=== PATIENT | male | born 1955 | race Caucasian/White ===

== ENCOUNTER 2017-01-12 01:38 | Emergency (ER) | payer OTHER ==
--- NOTE | ~2017-01-12 | CR72 ---
[facility] A Service of [facility] RADIOLOGY TEXT RESULTS PATIENT: MARY TURCIOS LOCATION: SED : 55 UNIT #: [id number] AGE: [address]: Dc Mancia MD SEX: M ORDER DR: [id number] [address] [address] [id number] E MR#: [id number] Acc #: [id number] NAME: MARY TURCIOS : 1955 SEX: M STUDY DATE/TIME: 01/12/2017 2:11 UNIT: SED ROOM: STUDY DESCRIPTION: CR Chest Single View Portable Attending Physician: Dc Mancia M.D. Ordering Physician: Dc Mancia M.D. Primary Care Physician: Primary Care Physician No MEDICAL IMAGING REPORT This report is preliminary unless electronic signature is present. EXAM Portable chest HISTORY Chronic shortness of air, cough and congestion, worse over last 2-3 days. COMPARISON 06/10/2016 FINDINGS AP portable view of the chest demonstrates extensive emphysematous changes with large bullae within both upper lungs with scarring and fibrosis and upward retraction of the kristy. No acute airspace disease or consolidation. Probable chronic pleural thickening in the lung bases but no definitive effusions. Heart and mediastinum unremarkable. Osseous structures unremarkable for age. Dictated by... May Pineda M.D. THIS IS AN ELECTRONICALLY VERIFIED REPORT May Pineda M.D. at 01/12/2017 9:58 PM KRUNAL/krissy TD: 01/12/2017 09:45 JOB #: [id number] MEDICAL IMAGING REPORT Page 1 of 1
--- NOTE | ~2017-01-12 | EKG ---
PATIENT: MARY TURCIOS UNIT #: [id number] Ventricular Rate: 93 BPM Atrial Rate: 93 BPM P-R Interval: 162 ms QRS Duration: 92 ms Q-T Interval: 348 ms QTC Calculation(Bezet): 432 ms P [place]: 79 degrees Calculated R [place]: -99 degrees Calculated T [place]: 81 degrees Diagnosis Line: Normal sinus rhythm Diagnosis Line: Biatrial enlargement Diagnosis Line: Right superior axis deviation Diagnosis Line: Pulmonary disease pattern Diagnosis Line: Abnormal ECG Diagnosis Line: When compared with ECG of 21-JUN-2016 20:14, Diagnosis Line: No significant change was found Diagnosis Line: Confirmed by BRUNA LUQUE MD ([id number]) on 01/14/2017 Diagnosis Line: 9:39:08 AM INTERPRETING MD: ENE PETTY
[~2017-01-12 01:38] MED LIST: ALBUTEROL MININEB INH; AMLODIPINE BESYL5 MG PO; ASPIRIN EC81 M1 PO; BANOPHEN50 MG PO; BENZONATATE PO; BISA-LAX10 MG/SUP1 PR; CALAMINE120 ML; CEFTIN500 MG PO; COMBIVENT MININEB INH; COMMIT BU; EXPECTORAN100 MG/52 PO; FERRO-TIME325 MG PO; FLONASE 0.05% N16 G1 INH; GAVILAX17 GM PO; GERI-TUSSI100 MG/5 M PO; LANSOPRAZOLE30 MG PO; LIPITOR20 MG PO; LISINOPRIL20 MG PO; NICOTINE PO; NICOTINE TRANSD21 MG TOP; NORCO1 TAB 10/3 PO; PAROXETINE HCL40 M1 PO; PREDNISOLONE1 GM; PREDNISONE PO; PROAIR HFA8.5 GM INH; SENNA S TABLET1 TAB PO; SPIRIVA18 MCG INH; SYMBICORT INH; SYNTHROID175 MCG PO; TYLENOL325 M1 PO; VITAMIN D3400 UNIT PO; ZITHROMAX PO
[2017-01-12 02:05] LABS: BASOPHIL# 0.1 X10e3 (0-0.3); BASOPHIL% 1.1 % (0-2.5); EOSINOPHIL# 0.2 X10e3 (0-0.7); HEMATOCRIT 40.7 % (38.0-50.0); HEMOGLOBIN 13.3 gm/dL (13.0-16.0); LYMPHOCYTE# 2.2 X10e3 (1.0-3.5); LYMPHOCYTE% 24.7 % (17.0-45.0); MEAN CELL VOLUME 90.7 FL (83-96); MEAN CORPUSCULAR HEMOGLOBIN 29.6 PG (28-34); MEAN CORPUSCULAR HGB CONC 32.7 g/dL (30-36); MEAN PLATELET VOLUME 7.8 FL (6.5-11.5); MONOCYTE# 0.7 X10e3 (0-1.0); MONOCYTE% 8.2 % (3.0-12.0); NEUTROPHIL# 5.6 X10e3 (1.5-7.1); PLATELET COUNT 357 X10e3 (140-420); RED BLOOD COUNT 4.49 X10e (3.90-5.60); RED CELL DISTRIBUTION WIDTH 16.2 % (11.0-15.5); WHITE BLOOD COUNT 8.8 X10e3 (4.0-10.5)
[2017-01-12 02:06] LABS: DIFF IND NO
[2017-01-12 02:14] LABS: INR 1.1; PROTHROMBIN TIME (PATIENT) 12.6 SECONDS (9.5-12.4)
[2017-01-12 02:20] LABS: POC - CKMB 2.3 ng/mL (0.0-7.9); POC - TROPONIN <0.05 ng/mL (<=0.05)
[2017-01-12 02:22] LABS: PARTIAL THROMBOPLASTIN TIME 31.7 SECONDS (25.6-38.1)
[2017-01-12 02:23] LABS: ALBUMIN SERUM 3.7 g/dL (3.5-5.0); ALKALINE PHOSPHATASE 62 U/L (32-92); ALT (SGPT) 12 U/L (10-40); AST (SGOT) 20 U/L (10-42); BILIRUBIN, DIRECT <0.1 mg/dL (0.0-0.2); BILIRUBIN,TOTAL 0.1 mg/dL (0.2-2.0); BLOOD UREA NITROGEN 14 mg/dL (9-23); BUN/CREATININE RATIO 23.33; CALCIUM SERUM 8.8 mg/dL (8.4-10.2); CARBON DIOXIDE 34 mmol/L (22-31); CHLORIDE 97 mmol/L (100-111); CREATININE SERUM 0.6 mg/dL (0.6-1.4); GLOM FILT RATE Estimated 108.6 mL/min (>60); GLUCOSE FASTING 135 mg/dL (70-110); POTASSIUM 3.6 mmol/L (3.5-5.1); PROTEIN TOTAL SERUM 6.9 g/dL (6.0-8.3); SODIUM 136 mmol/L (135-145)
== END 2017-01-12 03:44 | disposition home or self-care (01) ==
LOC: SED 01:38
PROVIDERS: Emergency Medicine
DX: J44.1 Chronic obstructive pulmonary disease with (acute) exacerbation (principal); J20.9 Acute bronchitis, unspecified; J44.0 Chronic obstructive pulmonary disease with (acute) lower respiratory infection; F17.200 Nicotine dependence, unspecified, uncomplicated; Z86.73 Personal history of transient ischemic attack (TIA), and cerebral infarction without residual deficits
CPT/HCPCS: 36415; 71010; 80048; 80076; 82553; 84484; 85025; 85610; 85730; 93005; 94640; 96365; 96375; 99284; J2930; J3475

== ENCOUNTER 2017-01-28 13:07 | Emergency (ER) | payer OTHER ==
--- NOTE | ~2017-01-28 | CR72 ---
[facility] A Service of [facility] RADIOLOGY TEXT RESULTS PATIENT: MARY TURCIOS LOCATION: [facility] : 55 UNIT #: [id number] AGE: [address]: Lex Salter MD SEX: M ORDER DR: [id number] [facility] [address] [place], [place] [address] [id number] P MR#: [id number] Acc #: [id number] NAME: MARY TURCIOS : 1955 SEX: M STUDY DATE/TIME: 01/28/2017 13:41 UNIT: [facility] ROOM: STUDY DESCRIPTION: CR Chest Single View Portable Attending Physician: Lex Salter M.D. Ordering Physician: Lex Salter M.D. Primary Care Physician: Primary Care Physician No MEDICAL IMAGING REPORT This report is preliminary unless electronic signature is present EXAM Chest portable 01/28/2017 1341 hours CLINICAL HISTORY 61-year-old man with shortness of air since last night. Hypertension. COMPARISON 01/12/2017. FINDINGS Portable upright chest demonstrates normal heart size and stable aortic contours. There is underlying emphysematous change with large apical bullae. There is scarring and superior retraction of both pulmonary kristy similar to prior study. There is a linear horizontal density in the right midlung which could represent a small air-fluid level and fluid within 1 of the previously demonstrated bulla cannot be excluded. There is ovoid opacity in the left upper lung new since the prior study measuring up to 3.2 x 2.2 cm. This appears to have a surrounding lucent halo and fluid or debris within a preexisting bulla is questioned as well. Consider further characterization with chest CT. These findings could be related to infection or hemorrhage within a bulla. Mycetoma cannot be excluded. IMPRESSION Patient has bullous emphysematous changes particularly in the upper lobes with scarring and superior retraction of both pulmonary kristy. There is hazy opacity in the left suprahilar region measuring 3.3 x 2.2 cm with a surrounding lucent halo raising question of fluid or debris within a preexisting bulla. There is also a horizontal linear line in the lateral mid-right hemithorax which raises question of an air-fluid level. This could be due to fluid within a preexisting bulla are within the pleural space. Findings are concerning for infection or hemorrhage within preexisting bullae. A mycetoma cannot be excluded in the left upper lung. Consider further evaluation with chest CT with contrast if possible. [facility] A Service of [facility] RADIOLOGY TEXT RESULTS PATIENT: MARY TURCIOS LOCATION: [facility] : 55 UNIT #: [id number] AGE: [address]: Lex Salter MD SEX: M ORDER DR: STAT * RESULT Dictated by... Linda Mejias M.D. THIS IS AN ELECTRONICALLY VERIFIED REPORT Linda Mejias M.D. at 01/28/2017 2:29 PM VONDA/constanza TD: 01/28/2017 14:18 JOB #: [id number] MEDICAL IMAGING REPORT Page 1 of 1 COPY
--- NOTE | ~2017-01-28 | EKG ---
PATIENT: MARY TURCIOS UNIT #: [id number] Ventricular Rate: 96 BPM Atrial Rate: 96 BPM P-R Interval: 154 ms QRS Duration: 88 ms Q-T Interval: 342 ms QTC Calculation(Bezet): 432 ms P [place]: 82 degrees Calculated R [place]: -85 degrees Calculated T [place]: 85 degrees Diagnosis Line: Normal sinus rhythm Diagnosis Line: Biatrial enlargement Diagnosis Line: Left axis deviation Diagnosis Line: Pulmonary disease pattern Diagnosis Line: Abnormal ECG Diagnosis Line: When compared with ECG of 12-JAN-2017 01:37, Diagnosis Line: No significant change was found Diagnosis Line: Confirmed by BRUNA LUQUE MD ([id number]) on 01/29/2017 Diagnosis Line: 6:01:28 PM INTERPRETING MD: ENE PETTY
--- NOTE | ~2017-01-28 | CT57 ---
[facility] A Service of [facility] RADIOLOGY TEXT RESULTS PATIENT: MARY TURCIOS LOCATION: [facility] : 55 UNIT #: [id number] AGE: [address]: Lex Salter MD SEX: M ORDER DR: [id number] [facility] [address] [place], [place] [address] [id number] E MR#: [id number] Acc #: [id number] NAME: MARY TURCIOS : 1955 SEX: M STUDY DATE/TIME: 01/28/2017 15:30 UNIT: [facility] ROOM: STUDY DESCRIPTION: CT Chest Wo Cont Attending Physician: Lex Salter M.D. Referring Physician: Kika Self Referred Ordering Physician: Lex Salter M.D. Primary Care Physician: No Primary Care Physician MEDICAL IMAGING REPORT This report is preliminary unless electronic signature is present EXAM CT of the chest without contrast. INDICATION Shortness of breath since last night, as well as chest pain. TECHNIQUE Axial CT images were obtained from the thoracic inlet through the dome of the diaphragm. No intravenous contrast material was administered. This CT exam was performed with one or more of the following radiation dose reduction techniques: automatic exposure control, adjustment of mA and/or kV according to patient size, and iterative reconstruction. FINDINGS This patient has advanced background emphysematous changes with large apical bulla seen. Similar findings were present in of December 2015, and are probably not significantly changed. Chronic fibrotic changes are identified within both lungs with areas of pleural thickening noted, particularly on the right. Thyroid gland is heterogeneous, trachea appears unremarkable as is the esophagus. Mediastinal lymph nodes do not appear pathologically enlarged. There are coronary artery calcifications. Images through the upper abdomen demonstrate multiple low-attenuation lesion within the right kidney which are favored to represent cysts. These were also present on December 2015 examination. I do not see any acute abnormalities within the upper abdomen. Review of bony windows does not demonstrate any aggressive osseous abnormalities. IMPRESSION 1. Advanced background emphysematous changes are again seen with large biapical bulla noted. Similar findings were present on the exam from December 27, 2015, and I do not see any evidence of pneumothorax, although, I do think some posteriorly located bulla within the right STS. [facility] A Service of [facility] RADIOLOGY TEXT RESULTS PATIENT: MARY TURCIOS LOCATION: [facility] : 55 UNIT #: [id number] AGE: [address]: Lex Salter MD SEX: M ORDER DR: lung in particular may be larger than on the prior study. Chronic scarring is identified within both lungs. The appearance is stable when compared to the exam from December of 2014, including chronic pleural thickening particularly within the right lung. 2. Heterogeneous appearing thyroid gland may reflect some underlying thyroid nodules. This would be better assessed with dedicated thyroid ultrasound on a nonemergent outpatient basis. 3. Right renal cysts. 4. Please see the body of the report for any other additional incidental findings. Dictated by... Marti Beltre M.D. THIS IS AN ELECTRONICALLY VERIFIED REPORT Marti Beltre M.D. at 01/29/2017 1:17 PM AFF/jt TD: 01/28/2017 19:42 JOB #: [id number] MEDICAL IMAGING REPORT Page 1 of 1 COPY
[2017-01-28 13:52] LABS: BASOPHIL# 0.1 X10e3 (0-0.3); BASOPHIL% 0.5 % (0-2.5); EOSINOPHIL# 0.1 X10e3 (0-0.7); HEMATOCRIT 38.5 % (38.0-50.0); HEMOGLOBIN 12.5 gm/dL (13.0-16.0); LYMPHOCYTE# 1.5 X10e3 (1.0-3.5); LYMPHOCYTE% 11.2 % (17.0-45.0); MEAN CELL VOLUME 91.2 FL (83-96); MEAN CORPUSCULAR HEMOGLOBIN 29.6 PG (28-34); MEAN CORPUSCULAR HGB CONC 32.4 g/dL (30-36); MEAN PLATELET VOLUME 8.2 FL (6.5-11.5); MONOCYTE# 1.3 X10e3 (0-1.0); MONOCYTE% 9.8 % (3.0-12.0); NEUTROPHIL# 10.1 X10e3 (1.5-7.1); NEUTROPHIL% 77.5 % (40-75); PLATELET COUNT 329 X10e3 (140-420); RED BLOOD COUNT 4.22 X10e (3.90-5.60); RED CELL DISTRIBUTION WIDTH 16.3 % (11.0-15.5)
[2017-01-28 13:55] LABS: POC - CKMB 2.8 ng/mL (0.0-7.9); POC - TROPONIN <0.05 ng/mL (<=0.05)
[2017-01-28 13:58] LABS: DIFF IND NO
[2017-01-28 14:20] LABS: CALCIUM SERUM 8.6 mg/dL (8.4-10.2); CREATININE SERUM 0.5 mg/dL (0.6-1.4); POTASSIUM 3.8 mmol/L (3.5-5.1)
== END 2017-01-28 16:55 | disposition home or self-care (01) ==
LOC: CED 13:07
PROVIDERS: Emergency Medicine
DX: J44.1 Chronic obstructive pulmonary disease with (acute) exacerbation (principal); I25.10 Atherosclerotic heart disease of native coronary artery without angina pectoris; F41.9 Anxiety disorder, unspecified; F17.200 Nicotine dependence, unspecified, uncomplicated; Z86.73 Personal history of transient ischemic attack (TIA), and cerebral infarction without residual deficits; Z79.899 Other long term (current) drug therapy; Z91.041 Radiographic dye allergy status
CPT/HCPCS: 71010; 71250; 80048; 82553; 83880; 84484; 85025; 93005; 94640; 96374; 99284; J2930

== ENCOUNTER 2017-05-21 05:53 | Inpatient (IN) | payer OTHER ==
[~2017-05-21] VITALS: Ht 170.2 cm; Wt 50.8 kg
--- NOTE | ~2017-05-21 | A ---
[facility] Nutrition Therapy DATE: 05/22/17 Patient: MARY TURCIOS Physician: WILLIE Address: [address] [place] [address] Room/Bed: [address], Zip: [place] [address] Admit Date: 05/21/17 Date of : 55 Height: 5 7 Weight: 109 49.5 NUTRITIONAL ASSESSMENT: REASON: LOW BMI PT IS 62 Y.O. MALE ADMITTED FOR SOA, ACUTE ON CHRONIC RESPIRATORY FAILURE PMH: COPD, CHRONIC RESPIRATORY FAILURE, PA, CAD, CVA, HYPOTHYROIDISM, 1 PPD SMOKER Anthropometrics: 5'7", WT: 120# (BEDSIDE) (55 KG), BMI: 18.8, 81%IBW -110# OTHER WEIGHT IN [facility] Labs: GLU: 159, BUN: 27, CA+:8.2, ALB: 3.0, NA+:134 Meds: KCL, PROTONIX, NACL, SOLU-MEDROL I/O & Bowel function: 1149/485 Skin Integrity: DRY SKIN NOTED ALL OVER BODY Estimated Nutrition Needs: INCREASED NEEDS 2' PT UNDERWEIGHT STATUS, PMH, CURRENT CLINICAL CONDITION, ?WEIGHT LOSS NOTED Assessment: CHART REVIEWED AND EVENTS NOTED. PT SEEN FOR UNDERWEIGHT STATUS (LOW BMI). PT REPORTS FAIR PO INTAKE AND APPETITE, NOTING NO C/O N/V/D. PT ADDS "I FEEL LIKE I AM ALWAYS HUNGRY". PT NOTES CONSUMING ~2-3 MEALS DAILY AT HOME. PT REPORTS UBW IS ~120-130#. OF NOTE, RD ASSESSED PT BACK IN APRIL 2016 AND PT NOTED UBW IS ~130#. THIS RD ENCOURAGED ADEQUATE KCAL, PROTEIN AND FLUID INTAKE, PT AGREED TO ENSURE CLEAR (DIET TO BE ADVANCED TO CLEAR LIQUID THIS AM). PT ALSO REQUESTED ENSURE ENLIVE + ENSURE PUDDING ONCE DIET ADVANCES BEYOND CLEAR LIQUID. PT REPORTED NO DIET QUESTIONS AT THIS TIME. RD TO FOLLOW HOSPITAL COURSE. Dx: INADEQUATE PROTEIN-ENERGY INTAKE R/T PMH, FAIR APPETITE AEB PT REPORT ABOVE, LOW BMI OF 18.8, 81%IBW. Intervention: 1. CLEAR LIQUID DIET 2. ENSURE CLEAR BID W/MEALS Monitoring, Evaluation and Goals: 1. ORAL INTAKE; ONCE INITIATED, TOLERATE/CONSUME >50% OF MEALS AND SUPPLEMENTS 2. WEIGHTS; PROMOTE GRADUAL WEIGHT GAIN TOWARDS HEALTHY BMI; PREVENT WEIGHT LOSS 3. LABS; WNL MONITOR: PER PROTOCOL, CRITERIA TO DETERMINE IF ABOVE GOALS ARE MET [facility] Nutrition Therapy DATE: 05/22/17 Patient: MARY TURCIOS Physician: WILLIE Address: [address] [place] [address] Room/Bed: [address], Zip: [place] [address] Admit Date: 05/21/17 Date of : 55 Height: 5 7 Weight: 109 49.5 Recommendations: 1. RD TO ORDER MIXED QUINTERO ENSURE CLEAR BID W/MEALS FOR ADDITIONAL PROTEIN, KCAL AND FLUIDS 2. ONCE MEDICALLY FEASIBLE, ADVANCE DIET TOLERATED TO REGULAR TO BETTER FACILITATE PO INTAKE 3. ORDER STRAWBERRY ENSURE SHAKES BID + BUTTERSCOTCH ENSURE PUDDING W/DINNER MEAL DAILY FOR ADDITIONAL PROTEIN, KCAL AND FLUIDS 4. ENCOURAGE ADEQUATE PO INTAKE RD WILL F/U PER PROTOCOL PT IS MILD/MODERATELY COMPROMISED Respectfully, MARIA DE JESUS AARON MS, RD, LD [employer] [facility] cc: client file
--- NOTE | ~2017-05-21 | CR72 ---
[facility] A Service of [facility] RADIOLOGY TEXT RESULTS PATIENT: MARY TURCIOS LOCATION: [facility] : 55 UNIT #: [id number] AGE: [address]: Monica Dinero MD SEX: M ORDER DR: [id number] [place] [id number] [facility] [place], [place] [address] [id number] I MR#: [id number] Acc #: [id number] NAME: MARY TURCIOS : 1955 SEX: M STUDY DATE/TIME: 05/21/2017 6:33 UNIT: CEDOF ROOM: [id number] STUDY DESCRIPTION: CR Chest Single View Portable Attending Physician: Monica Dinero M.D. Ordering Physician: Marvin Benavidez M.D. Primary Care Physician: No Primary Care Physician MEDICAL IMAGING REPORT This report is preliminary unless electronic signature is present EXAM Chest x-ray, 05/21/2017. HISTORY 62-year-old male in the ED complaining of 2-day history of worsening of his chronic shortness of air. Chronic lung disease. TECHNIQUE AP portable upright chest images. COMPARISON CT chest and chest x-ray, 01/28/2017. FINDINGS Severe pulmonary emphysema. There is also severe chronic postinflammatory change in the upper lungs likely related to old granulomatous infection. These changes include fibrosis and significant upper lung retractile volume loss with upward retraction of the pulmonary kristy and formation of retractile bullous airspaces at both lung apices. When compared with prior studies, there is no evidence of superimposed active upper lung superinfection such as new airspace consolidation or apical pleural fluid or pleural thickening. Lower lungs are clear. Heart size normal. No visible pleural effusion. IMPRESSION Stable chest x-ray, unchanged since 01/28/2017. Advanced pulmonary emphysema. Advanced chronic postinflammatory changes and volume loss in the upper lungs as noted above. Dictated by... Walt Noland M.D. [facility] A Service of [facility] RADIOLOGY TEXT RESULTS PATIENT: MARY TURCIOS LOCATION: [facility] : 55 UNIT #: [id number] AGE: [address]: Monica Dinero MD SEX: M ORDER DR: THIS IS AN ELECTRONICALLY VERIFIED REPORT Walt Noland M.D. at 05/21/2017 3:38 PM HOMERO/roberto carlos TD: 05/21/2017 09:07 JOB #: [id number] MEDICAL IMAGING REPORT Page 1 of 1 COPY
--- NOTE | ~2017-05-21 | DS ---
Unit #: [id number] #: [id number] Patient: MARY TURCIOS [id number] [address] [address] [id number] I MR#: [id number] NAME: MARY TURCIOS ROOM: 303 Age: 62 Sex: M Admission Date: 05/21/2017 : 1955 Discharge Date: Attending Physician: Tosha Fregoso M.D. Primary Care Physician: No Primary Care Physician DISCHARGE SUMMARY DISCHARGE DIAGNOSES 1. Acute on chronic hypoxic respiratory failure with hypercapnia. 2. Chronic obstructive pulmonary disease with exacerbation. 3. No pneumonia. 4. Severe emphysema, end stage. Patient has hospice at home. 5. Leukocytosis, likely from steroids. 6. Chronic respiratory failure on 3 L oxygen. 7. Coronary artery disease, status post stents placed. 8. History of cerebrovascular accident, no residual. 9. Anxiety. 10. Hypertension, uncontrolled. 11. Hypothyroidism. CONSULTATION Dr. Kendall. PROCEDURES None. LAB DATA Blood cultures negative. Sodium 141, potassium 4.0, creatinine 0.4, albumin 2.9. Liver enzymes normal. WBC 11.4, hemoglobin 10.3, platelets 287. ABG - pH 7.37, carbon dioxide 63, oxygen 107. Lactic acid 0.9. Troponins are negative. TSH 13.25. ALLERGIES Iodinated contrast, oral and IV. DISCHARGE MEDICATIONS 1. Albuterol q.8, 1 puff p.r.n. shortness of breath. 2. Albuterol mini nebs 4x daily p.r.n. shortness of breath. 3. Symbicort 160 mcg, 2 puffs inhalation b.i.d. 4. Prednisone tapering dose. 5. Lactulose 10 g p.o. b.i.d. 6. Tylenol 650 p.o. q.6 p.r.n. 7. Maalox 30 mL p.o. p.r.n. daily. 8. Flonase 2 sprays inhalation b.i.d. 9. Spiriva 1 inhalation daily. 10. Paxil 40 mg p.o. daily. 11. Nystatin 5 mL 4x daily. 12. Cetirizine 5 mg p.o. daily. 13. Tessalon Perles 200 mg q.8 p.r.n. cough. Unit #: [id number] #: [id number] Patient: MARY TURCIOS 14. Guaifenesin 10 mL q.4 p.r.n. cough. 15. Nicotine 14 mg transdermal daily. 16. Lorazepam 1 mg q.3 p.r.n. anxiety. 17. Norvasc 5 mg p.o. b.i.d. 18. Senna 2 tablets p.o. b.i.d. 19. Fluticasone 50 mcg inhalation b.i.d. 20. Guaifenesin syrup 200 mg q.4 p.r.n. cough. 21. Lipitor 20 at bedtime. 22. Lisinopril 20 daily. 23. Ferrous sulfate 325 p.o. b.i.d. 24. Carbamide peroxide drops b.i.d. 25. Famotidine 20 mg p.o. b.i.d. 26. Aspirin 81 daily. 27. Lansoprazole 30 daily. 28. Synthroid 175 mcg p.o. daily. 29. Doxycycline 100 p.o. b.i.d. for 5 more days. 30. Vitamin D3 2000 units daily. HOSPITALIZATION COURSE This is a 62-year-old admitted because of shortness of breath. 1. Acute on chronic hypercapnic/hypoxic respiratory failure from COPD. He has end stage emphysema. Patient is seen by Dr. Kendall. Patient was given IV Solu-Medrol, Duo-Nebs and Dulera. Currently breathing better. He wants to go home. Patient will be discharged on prednisone tapering dose and doxycycline. According to him, hospice comes and sees him and they give all medications needed for his COPD. 2. COPD with end stage emphysema. Continue with prednisone tapering dose and albuterol, Symbicort, doxycycline and Spiriva. Patient will follow Dr. Kendall as an outpatient. Patient has hospice at home. 3. Coronary artery disease, stable. 4. Hypothyroidism with a mild elevated LDH. Continue with his Synthroid. He is already on 175 mcg. Follow with his PCP for any dose adjustments. 5. Patient will be discharged home after seen by Dr. Kendall. Follow with PCP in 1-[address] Follow with [address]. Kendall as he recommends. Continue with hospice at home. Dictated by... Deb Aguirre TD: 05/26/2017 11:28 JOB #: [id number] DISCHARGE SUMMARY Page 1 of 1 X Tosha Fregoso MD X DISCHARGE SUMMARY
--- NOTE | ~2017-05-21 | EKG ---
PATIENT: MARY TURCIOS UNIT #: [id number] Ventricular Rate: 118 BPM Atrial Rate: 118 BPM P-R Interval: 142 ms QRS Duration: 80 ms Q-T Interval: 300 ms QTC Calculation(Bezet): 420 ms P [place]: 82 degrees Calculated R [place]: -96 degrees Calculated T [place]: 83 degrees Diagnosis Line: Sinus tachycardia with Premature atrial complexes Diagnosis Line: Biatrial enlargement Diagnosis Line: Right superior axis deviation Diagnosis Line: Pulmonary disease pattern Diagnosis Line: Abnormal ECG Diagnosis Line: No previous ECGs available Diagnosis Line: Confirmed by CODY HOLLEY MD ([id number]) on Diagnosis Line: 05/22/2017 11:33:08 AM INTERPRETING MD: KISHAN PETTY
--- NOTE | ~2017-05-21 | CO ---
Unit #: [id number] #: [id number] Patient: MARY TURCIOS [id number] [address] [place], [place] [address] [id number] I MR#: [id number] NAME: MARY TURCIOS ROOM: [facility] Age: 62 Sex: M Admission Date: 05/21/2017 : 1955 Attending Physician: Cuca Browne M.D. Primary Care Physician: Primary Care Physician No Consultation Date: 05/21/2017 CONSULTATION REPORT REASON FOR CONSULTATION Respiratory failure. HISTORY OF PRESENT ILLNESS The patient is a 62-year-old gentleman with severe bullous emphysema with ongoing active tobacco use, who presents with a 2-week history of increasing shortness of breath. He was seen in the intensive care unit on mask ventilation. He was still able to answer questions fairly well. He said his shortness of breath just got worse. He has had wheezing, some sputum production. Denied chest pain or hemoptysis. He had been no evidence of fever. He does feel somewhat better now than he did upon presentation. PAST MEDICAL HISTORY Remarkable for severe bullous emphysema whom I saw in 04/2016. He has chronic respiratory failure, ongoing active tobacco use, coronary artery disease, hypothyroidism, anxiety. MEDICATIONS Currently are unknown. I do not see a med rec sheet. He cannot tell me exactly what medicines he is on. He tells me he is on a Proventil inhaler and a nebulizer and is on no other inhaled medications. ALLERGIES IV dye, unknown reactions. SOCIAL HISTORY He continues to smoke. FAMILY HISTORY No definite familial lung disease other than the father having tuberculosis. REVIEW OF SYSTEMS Limited because of his severe illness and need for mask ventilation. He denies chest pain, hemoptysis, abdominal pain, any bleeding, leg pain, swelling, fever, or headache. PHYSICAL EXAMINATION GENERAL: Reveals a patient, who is in no acute distress, on mask ventilation, prolonged expiratory phase. VITAL SIGNS: He is afebrile. Pulse 91, respiratory rate is 14, blood pressure 126/77, 5 feet 7 inches, 126 pounds. HEENT: Pupils equal, round, and reactive to light. Sclerae anicteric. Unit #: [id number] #: [id number] Patient: ANDIS,MARY Head atraumatic. NECK: Supple. No supraclavicular or cervical adenopathy appreciated. He is edentulous. CHEST: Very tight expiratory wheeze. No definite consolidation or stridor. CARDIAC: Reveals distant heart tones. Regular rate and rhythm. No definite pathologic murmur, rub, or gallop. ABDOMEN: Soft and nontender. No hepatomegaly or rebound. EXTREMITIES: Reveal no clubbing, cyanosis, or edema. No calf tenderness. SKIN: He has a mild excoriation on his right knee. He is somewhat disheveled. NEUROLOGIC: Grossly intact. No focal motor or sensory deficits. DIAGNOSTIC STUDIES LABORATORY RESULTS: For some reason, the computer kicked me off once again. Examination reveals arterial blood gas; pH of , pCO2 of 78, pO2 of 112. Repeat arterial blood gas; pH is 7.32, pCO2 of 70, pO2 of 105. BUN 20, creatinine is 0.6. BNP 167. Lactic acid 1.1. Of note, TSH last year was 61. INR normal. Cardiac enzymes, normal. CBC; white blood cell count is 23, hemoglobin is 12.6, platelet count is 350. Urinalysis not performed. Blood cultures performed and are pending. Sputum last year, normal [place]. IMAGING STUDIES: Chest x-ray; bullous emphysema. No definite pneumonia. CARDIOVASCULAR STUDIES: EKG; baseline artifact, P pulmonale. Sinus rhythm. IMPRESSION 1. Acute on chronic respiratory failure, hypoxemic hypercapnic. 2. Severe emphysema with tight bronchospasm. 3. Active tobacco use. 4. Leukocytosis. 5. Hypothyroidism with markedly elevated TSH. 6. Medical problems listed above. PLAN Maximize pulmonary function with IV steroids, nebulized bronchodilators, nebulized controlling agents. Noninvasive mask ventilation. I will recheck his TSH. Antibiotics for bronchitis, possible occult pneumonia, and possible urinary tract infection, and urinalysis will be checked. He seems to be improving. Once he is stabilized, I will discuss long-term care plans given his very severe emphysema. Thank you very much for allowing me to participate in the care of Mr. Horowitz. Dictated by... Raymond Kendall M.D. JET/reyes TD: 05/21/2017 17:08 JOB #: [id number] Unit #: [id number] #: [id number] Patient: NORYSUNNYMARY CONSULTATION REPORT Page 1 of 1 X Raymond Kendall MD CONSULTATION REPORT
--- NOTE | ~2017-05-21 | HP ---
Unit #: [id number] #: [id number] Patient: MARY TURCIOS [id number] [address] [place], [place] [address] [id number] MR#: [id number] NAME: MARY TURCIOS ROOM: [facility] Age: 62 Sex: M Admission Date: 05/21/2017 : 1955 Attending Physician: Monica Dinero M.D. HISTORY AND PHYSICAL CHIEF COMPLAINT Shortness of air. HISTORY OF PRESENT ILLNESS The patient is a 62-year-old male with a past medical history of chronic respiratory failure, COPD with continued tobacco abuse, coronary artery disease, cerebrovascular accident, anxiety, and hypothyroidism, who presented to the emergency department for evaluation of the above. History is obtained from chart review and discussion with ER staff due to the patient currently being on BiPAP and unable to provide much history. The patient has apparently had increasing shortness of breath and productive cough. He denies any fever. He has had chest pain in association with cough. He states that his appetite has been okay. He denies any vomiting or diarrhea. In the emergency department, initial temperature was 99.9, pulse 124, respirations 24, blood pressure 178/100, and oxygen saturation was 100%. Initial arterial blood gas showed pH of 7.297, PCO2 of 78.1, and PO2 of 112 on BiPAP at 12/6 with an FIO2 of 40%. Chest x-ray shows severe emphysema. White blood cell count is 23.3. Lactic acid 1.1. He was given 125 mg of Solu-Medrol. He is being admitted to [facility] [place] for evaluation and further treatment. PAST MEDICAL HISTORY 1. Admission to [facility] [place] April 08, 2016, for acute on chronic respiratory failure and COPD exacerbation. 2. Chronic respiratory failure on three liters of oxygen per nasal cannula. 3. COPD followed by Dr. Kendall. 4. Coronary artery disease, status post stent placement. 5. Cerebrovascular accident with no residual. 6. Anxiety. PAST SURGICAL HISTORY 1. Cardiac stent placement. 2. Shoulder surgery. SOCIAL HISTORY The patient continues to smoke at least a pack of cigarettes daily. There is no alcohol use. FAMILY HISTORY Notable for his mother having malignancy. His dad possibly had TB. Unit #: [id number] #: [id number] Patient: MARY TURCIOS ALLERGIES IV dye. HOME MEDICATIONS Per the Discharge Summary from April 11, 2016, include: 1. Albuterol q.i.d. p.r.n. 2. Symbicort 160 at 2 puffs inhaled b.i.d. 3. Tylenol 650 q.6 hours p.r.n. 4. Flonase 2 sprays nasally b.i.d. 5. Spiriva 18 mcg daily inhaled. 6. Paxil 40 mg daily. 7. Norvasc 5 mg daily. 8. Senna 2 tablets p.o. b.i.d. 9. MiraLAX 17 g daily. 10. Lipitor 20 mg daily. 11. Lisinopril 20 mg daily. 12. Iron 325 mg b.i.d. 13. Aspirin 81 mg daily. 14. Lansoprazole 30 mg daily. 15. Synthroid 175 mcg daily. 16. Vitamin D 800 units daily. Home medications will need to be reviewed and verified. REVIEW OF SYSTEMS A complete review of systems is negative except as indicated in the HPI but somewhat limited due to the patient's altered mental status. PHYSICAL EXAMINATION VITAL SIGNS: Temperature is 99.9, pulse 124, respirations 24, blood pressure 178/100, most recently 126/77, oxygen saturation 100% on room air. GENERAL: The patient is a male who appears older than the stated age. HEENT: Head is atraumatic. Mucous membranes are dry. NECK: Supple. Trachea is midline. CARDIOVASCULAR: Regular rate and rhythm. LUNGS: Decreased breath sounds with inspiratory and expiratory wheezes. Breathing is mildly labored. The patient is on BiPAP. ABDOMEN: Soft and nontender with bowel sounds present in all four quadrants. EXTREMITIES: Nontender with no pedal edema. NEUROLOGIC: The patient is lethargic but opens eyes to physical stimuli. He is moving all extremities. He follows commands. PSYCHIATRIC: The patient is cooperative. Mood and affect are normal. SKIN: Generally pale. DIAGNOSTIC STUDIES LABORATORY: Troponin is less than 0.05. Initial arterial blood gas shows a pH of 7.297, PCO2 of 78.1, PO2 of 112, on BiPAP at 12/6 with an FIO2 of 40%. Complete blood count notable for a white blood cell count of 23.3 and hemoglobin and hematocrit 12.6 and 40.2, respectively. Lactic acid is 1.1. Comprehensive metabolic panel notable for a chloride of 94, CO2 of 36, glucose 126. BNP is 167. INR is 1.1. IMAGING: Chest x-ray shows severe emphysema. CARDIOLOGY: EKG shows sinus tachycardia with premature atrial complexes Unit #: [id number] #: [id number] Patient: MRAY TURCIOS at a rate of 118 beats per minute. ASSESSMENT The patient is a 62-year-old male with: 1. Acute on chronic respiratory failure, hypoxic and hypercapnic. 2. Chronic obstructive pulmonary disease exacerbation. The patient received Solu-Medrol in the emergency department. 3. Possible pneumonia. Chest x-ray is read as negative but patient does have leukocytosis and has had increasingly productive cough. 4. Leukocytosis concerning for possible sepsis. Initial lactic acid is 1.1. 5. Coronary artery disease, status post stent placement. 6. History of cerebrovascular accident with no residual. 7. Anxiety. 8. Hypothyroidism. 9. Tobacco abuse. PLAN 1. Admit to ICU. 2. N.p.o. 3. Continue BiPAP at current settings. 4. Solu-Medrol 80 mg IV q.12 hours. 5. DuoNebs q.4 hours. 6. Doxycycline 100 mg p.o. b.i.d. pending Dr. Kendall's recommendations. 7. Consult Dr. Kendall regarding respiratory failure and COPD. 8. Serial cardiac enzymes. 9. Sepsis protocol. 10. Neuro checks. 11. Check TSH. 12. Repeat labs in the morning. 13. SCDs for DVT prophylaxis. 14. Protonix for GI prophylaxis since the patient will be on Solu-Medrol. 15. Blood cultures x2 for further evaluation of leukocytosis. 16. Check urinalysis with culture and sensitivity. 17. Additional workup and consultants based on above. 1. Dictated by Deb Jimenez/lisa TD: 05/21/2017 14:08 JOB #: [id number] HISTORY AND PHYSICAL Page 1 of 1 X Monica Dinero MD X HISTORY AND PHYSICAL
[2017-05-21 06:25] LABS: BASOPHIL# 0.1 X10e3 (0-0.3); BASOPHIL% 0.4 % (0-2.5); DIFF IND YES; EOSINOPHIL# 0.3 X10e3 (0-0.7); EOSINOPHIL% 1.5 % (0.0-7.0); HEMATOCRIT 40.2 % (38.0-50.0); HEMOGLOBIN 12.6 gm/dL (13.0-16.0); LYMPHOCYTE# 2.8 X10e3 (1.0-3.5); MEAN CELL VOLUME 87.7 FL (83-96); MEAN CORPUSCULAR HEMOGLOBIN 27.5 PG (28-34); MEAN CORPUSCULAR HGB CONC 31.4 g/dL (30-36); MEAN PLATELET VOLUME 8.8 FL (6.5-11.5); MONOCYTE# 1.7 X10e3 (0-1.0); MONOCYTE% 7.3 % (3.0-12.0); NEUTROPHIL# 18.4 X10e3 (1.5-7.1); NEUTROPHIL% 78.8 % (40-75); PLATELET COUNT 350 X10e3 (140-420); RED BLOOD COUNT 4.59 X10e (3.90-5.60); RED CELL DISTRIBUTION WIDTH 16.9 % (11.0-15.5); WHITE BLOOD COUNT 23.3 X10e3 (4.0-10.5)
[2017-05-21 06:32] LABS: POC - CKMB 6.5 ng/mL (0.0-7.9); POC - TROPONIN <0.05 ng/mL (<=0.05)
[2017-05-21 06:35] LABS: ARTERIAL BLD GAS O2 SATURATION 94.3 % (90.0-100.0); ARTERIAL BLOOD GAS CARBOXY HB 2.9 %sat (0.0-9.0); ARTERIAL BLOOD GAS HCO3 38.2 mmol/L; ARTERIAL BLOOD GAS MET HB 0.9 %sat (0.0-2.0); ARTERIAL BLOOD GAS pH 7.297 (7.350-7.450)
[2017-05-21 06:37] LABS: ARTERIAL BLOOD GAS ALLEN TEST NORMAL; ARTERIAL BLOOD GAS ART SITE RIGHT RADIAL; ARTERIAL BLOOD GAS PCO2 78.1 mmHg (35.0-45.0); ARTERIAL DRAW? YES
[2017-05-21 06:43] LABS: ANISOCYTOSIS SL; PLATELET ESTIMATE NORMAL (NORMAL)
[2017-05-21 06:57] LABS: ALBUMIN SERUM 3.8 g/dL (3.5-5.0); BILIRUBIN, DIRECT 0.2 mg/dL (0.0-0.2); BILIRUBIN,INDIRECT 0.7 mg/dL (0.0-0.9); BILIRUBIN,TOTAL 0.9 mg/dL (0.2-2.0); BUN/CREATININE RATIO 36.66; CALCIUM SERUM 8.5 mg/dL (8.4-10.2); CREATININE SERUM 0.6 mg/dL (0.6-1.4); GLOM FILT RATE Estimated 107.8 mL/min (>60); POTASSIUM 4.2 mmol/L (3.5-5.1); PROTEIN TOTAL SERUM 7.5 g/dL (6.0-8.3)
[2017-05-21 07:49] LABS: ARTERIAL BLD GAS O2 SATURATION 94.2 % (90.0-100.0); ARTERIAL BLOOD GAS CARBOXY HB 2.8 %sat (0.0-9.0); ARTERIAL BLOOD GAS HCO3 36.8 mmol/L; ARTERIAL BLOOD GAS MET HB 1.2 %sat (0.0-2.0); ARTERIAL BLOOD GAS pH 7.326 (7.350-7.450)
[2017-05-21 07:52] LABS: ARTERIAL BLOOD GAS ALLEN TEST NORMAL; ARTERIAL BLOOD GAS ART SITE RIGHT RADIAL; ARTERIAL BLOOD GAS PCO2 70.6 mmHg (35.0-45.0); ARTERIAL DRAW? YES
[2017-05-21 08:17] LABS: POC - CKMB 2.2 ng/mL (0.0-7.9); POC - TROPONIN <0.05 ng/mL (<=0.05)
[2017-05-21 08:36] LABS: INR 1.1; PARTIAL THROMBOPLASTIN TIME 28.9 SECONDS (23.5-31.3); PROTHROMBIN TIME (PATIENT) 11.6 SECONDS (10.0-11.7)
[2017-05-21 12:37] LABS: CK TOTAL 58 IU/L (36-174)
[2017-05-21 16:14] LABS: URINE SOURCE CLEAN CATCH
[2017-05-21 16:18] LABS: URINE APPEARANCE CLEAR; URINE BILIRUBIN NEG (NEG); URINE BLOOD 2+ (NEG); URINE COLOR DK YELLOW; URINE GLUCOSE NEG (NEG); URINE KETONE 1+ (NEG); URINE LEUKOCYTE ESTERASE NEG (NEG); URINE NITRATE NEG (NEG); URINE PROTEIN 2+ (NEG); URINE SPECIFIC GRAVITY 1.025 (1.003-1.035)
[2017-05-21 16:20] LABS: URBCS1 AUWI 25-50 /[HPF] (0-2); URINE BACTERIA AUWI NEG (NEGATIVE); URINE SQUAMOUS EPITHELIAL CELL OCC /[HPF]; UWBCS1 AUWI 0-2 (0-5)
[2017-05-21 16:31] LABS: CULTURE INDICATED? NO
[2017-05-22 04:56] LABS: HEMATOCRIT 37.2 % (38.0-50.0); MEAN CORPUSCULAR HEMOGLOBIN 28.3 PG (28-34); MEAN CORPUSCULAR HGB CONC 32.2 g/dL (30-36); MEAN PLATELET VOLUME 8.4 FL (6.5-11.5); RED BLOOD COUNT 4.22 X10e (3.90-5.60); RED CELL DISTRIBUTION WIDTH 17.1 % (11.0-15.5)
[2017-05-22 04:58] LABS: WHITE BLOOD COUNT 10.1 X10e3 (4.0-10.5)
[2017-05-22 05:43] LABS: BILIRUBIN,TOTAL 0.3 mg/dL (0.2-2.0); CALCIUM SERUM 8.2 mg/dL (8.4-10.2); CREATININE SERUM 0.6 mg/dL (0.6-1.4); GLOM FILT RATE Estimated 107.8 mL/min (>60); POTASSIUM 4.6 mmol/L (3.5-5.1)
[2017-05-22 08:03] LABS: ARTERIAL BLD GAS O2 SATURATION 96.3 % (90.0-100.0); ARTERIAL BLOOD GAS ALLEN TEST N; ARTERIAL BLOOD GAS ART SITE LEFT RADIAL; ARTERIAL BLOOD GAS CARBOXY HB 1.1 %sat (0.0-9.0); ARTERIAL BLOOD GAS HCO3 36.7 mmol/L; ARTERIAL BLOOD GAS MET HB 1.1 %sat (0.0-2.0); ARTERIAL BLOOD GAS PCO2 63.4 mmHg (35.0-45.0); ARTERIAL DRAW? YES
[2017-05-22 08:04] LABS: ARTERIAL BLOOD GAS DELIVERY NASAL CANNULA
[2017-05-22] MEDS ORDERED: ACETAMINOPHEN325 MG PO (15:23)
[2017-05-22] MEDS ORDERED: [UNRECOGNIZED DRUG - OTHER] AU (15:24)
[2017-05-22] MEDS ORDERED: GUAICON DMS LIQ10 M1 PO (15:25)
[2017-05-22] MEDS ORDERED: PAXIL40 MG PO (15:25)
[2017-05-22] MEDS ORDERED: ACID REDUCER20 MG PO (15:26)
[2017-05-22] MEDS ORDERED: ZYRTEC5 M2 PO (15:26)
[2017-05-22] MEDS ORDERED: ARNUITY ELLIP100 MCG INH (15:27)
[2017-05-22] MEDS ORDERED: MAALOX SUSPENS355 ML PO (15:30)
[2017-05-22] MEDS ORDERED: NICOTINE PATCH1 EACH TD (15:31)
[2017-05-22] MEDS ORDERED: NILSTAT PO (15:33)
[2017-05-22] MEDS ORDERED: LEVAQUIN250 MG PO (15:34)
[2017-05-22] MEDS ORDERED: LORAZEPAM1 MG PO (15:36)
[2017-05-22] MEDS ORDERED: LACTULOSE10 GM/152 PO (15:38)
[2017-05-22] MEDS ORDERED: SENNA-LAX8.6 M1 PO (15:38)
[2017-05-24 05:42] LABS: HEMATOCRIT 32.3 % (38.0-50.0); HEMOGLOBIN 10.3 gm/dL (13.0-16.0); MEAN CELL VOLUME 86.6 FL (83-96); MEAN CORPUSCULAR HEMOGLOBIN 27.7 PG (28-34); MEAN PLATELET VOLUME 7.8 FL (6.5-11.5); RED BLOOD COUNT 3.72 X10e (3.90-5.60); RED CELL DISTRIBUTION WIDTH 16.5 % (11.0-15.5); WHITE BLOOD COUNT 11.4 X10e3 (4.0-10.5)
[2017-05-24 06:14] LABS: ALBUMIN SERUM 2.9 g/dL (3.5-5.0); BILIRUBIN,TOTAL 0.2 mg/dL (0.2-2.0); BUN/CREATININE RATIO 57.5; CALCIUM SERUM 8.6 mg/dL (8.4-10.2); CREATININE SERUM 0.4 mg/dL (0.6-1.4); GLOM FILT RATE Estimated 127.3 mL/min (>60); PROTEIN TOTAL SERUM 5.7 g/dL (6.0-8.3)
[2017-05-26] MEDS ORDERED: PREDNISOLONE5 MG PO (16:07)
[2017-05-26] MEDS ORDERED: MAALOX SUSPENS355 ML PO (16:12)
[2017-05-26] MEDS ORDERED: DOXYCYCLINE150 MG PO (16:30)
[2017-05-26] MEDS ORDERED: NORVASC PO (16:31)
[2017-05-26] MEDS ORDERED: SYMBICORT (16:37)
== END 2017-05-26 18:28 | disposition home or self-care (01) | DRG 189 ==
LOC: CED 05:53 → CEDOF 08:20 → C3A PCU 08:20 → CICCU2 08:20 → CED 08:35 → CEDOF 08:35 → CICCU2 10:16 → CEDOF 10:16 → CICCU2 05-22 07:49 → C3A PCU 05-23 15:53
PROVIDERS: Emergency Medicine; Family Medicine; Internal Medicine; Internal Medicine Endocrinology, Diabetes & Metabolism
PROC: 5A09357 Assistance with Respiratory Ventilation, Less than 24 Consecutive Hours, Continuous Positive Airway Pressure (ICD-10-PCS; principal; 2017-05-21)
DX: J96.21 Acute and chronic respiratory failure with hypoxia (principal); E87.2 Acidosis; E44.0 Moderate protein-calorie malnutrition; J44.1 Chronic obstructive pulmonary disease with (acute) exacerbation; F19.20 Other psychoactive substance dependence, uncomplicated; Z68.1 Body mass index [BMI] 19.9 or less, adult; I10 Essential (primary) hypertension; J96.22 Acute and chronic respiratory failure with hypercapnia; I25.10 Atherosclerotic heart disease of native coronary artery without angina pectoris; F41.9 Anxiety disorder, unspecified; E03.9 Hypothyroidism, unspecified; Z86.73 Personal history of transient ischemic attack (TIA), and cerebral infarction without residual deficits; F17.210 Nicotine dependence, cigarettes, uncomplicated; Z91.041 Radiographic dye allergy status
CPT/HCPCS: 36415; 36600; 71010; 80048; 80053; 80076; 81003; 82550; 82553; 82803; 82947; 83605; 83880; 84443; 84484; 85025; 85027; 85610; 85730; 87040; 93005; 94640; 94660; 94664; 94760; 96361; 96374; 97162; 97165; 99285; C9113; G8978-GP; G8979-GP; G8980-GP; G8987-GO; G8988-GO; G8989-GO; J0696; J1650; J2920; J2930